=== PATIENT | male | born 1975 | race Caucasian/White ===

== ENCOUNTER 2020-04-09 08:26 | Emergency (ER) | payer BC ==
[2020-04-09] MEDS ORDERED: Lidocaine 1% with EPINEPHrine 1:100,000 10 ML MDV INJECT ONE (08:29)
[2020-04-09] MEDS ORDERED: Lactated Ringers 1,000 ML IV ONE ×2 (08:30→09:56)
[2020-04-09] MEDS ORDERED: Lidocaine 1% with EPINEPHrine 1:100,000 20 ML MDV ONE (08:34)
[2020-04-09] MEDS ORDERED: Lidocaine 1% with EPINEPHrine 1:100,000 20 ML MDV INJECT ONE (08:38)
--- NOTE | 2020-04-09 08:39 | EDM.PDOC ---
ED HPI GENERAL MEDICAL PROBLEM - General Chief Complaint: ENT Problem Stated Complaint: UNKNOWN Time Seen by Provider: 04/09/20 08:28 - History of Present Illness INITIAL COMMENTS - FREE TEXT/NARRATIVE: 44-year-old male who denies other medical problems issues with bleeding or prior surgeries who presents with post tonsillectomy bleeding. The patient had tonsillectomy and Maureen 7 days ago. He has had significant issues with pain since that time. at bedside reports that the tonsillar fossa were quite friable during the procedure to the point that his doctor even avoided injecting Marcaine after the procedure out of a desire not to cause additional bleeding issues. Patient has had significant issues with pain since that time however starting overnight he developed bleeding after coughing up a moderate sized bloo d clot. The patient reports severe pain. He has a sensation of difficulty breathing when he is calmly spitting out saliva mixed with dark red blood. throat Pain Score (Numeric/FACES): 5 - Related Data Allergies Allergy/AdvReac Type Severity Reaction Status Date / Time Penicillins Allergy Cannot Verified 04/09/20 08:33 Remember Home Meds: Home Meds Acetaminophen [Tylenol Extra Strength] 1 - 2 tab PO Q6H PRN 04/09/20 [History] Acetaminophen/Codeine [Tylenol with Codeine No.3 300MG/30MG] 15 ml PO Q6H PRN 04/09/20 [History] Azithromycin 1 tab PO DAILY 04/09/20 [History] Hydrocodone/Acetaminophen [Ransom 7.5-325 Tablet] 10 ml PO Q6H PRN 04/09/20 [History] ED ROS GENERAL - Review of Systems Review Of Systems: See Below Free Text/Narrative/Comment: General: No fever. Skin: No rash. Eyes: No vision problems. ENT: Per HPI Neck: No neck stiffness. Respiratory: Per HPI Cardiac: No chest pain. Gastrointestinal: No nausea, vomiting or abdominal pain. Urinary: No dysuria. Musculoskeletal: No myalgias/arthralgias. Neurologic: No headache. ED EXAM, GENERAL - Physical Exam Exam: See Below Free Text/Narrative:: General Appearance: No acute distress, appears comfortable Skin: No rash HEENT: Normocephalic/atraumatic, sclera anicteric, mucous membranes moist, bilateral tonsillar fossa appears significantly friable with signs of recent bleeding these are more pronounced on the right where there is some adherent clot. There is no stridor and no abnormal intraoral swelling Neck: Normal range of motion Chest and Lungs: Bilateral breath sounds, clear to auscultation, normal work of breathing Cardiovascular: Regular rate and rhythm, no murmur Neurologic: Awake, alert, no obvious deficits, moving all extremities Psychiatric: Appropriate, cooperative Course - Vital Signs Last Recorded V/S: Last Vital Signs Temp 96.6 F L 04/09/20 08:29 Pulse 116 H 04/09/20 10:05 Resp 18 04/09/20 10:05 BP 132/86 04/09/20 10:05 Pulse Ox 97 04/09/20 10:05 - Orders/Labs/Meds Labs: Laboratory Tests 04/09/20 04/09/20 Range/Units 08: 08:27 WBC 11.47 H (4.0-11.0) K/uL RBC 5.16 (4.50-5.90) M/uL Hgb 16.1 (13.0-17.0) g/dL Hct 47.3 (38.0-50.0) % MCV 91.7 (80.0-98.0) fL MCH 31.2 (27.0-32.0) pg MCHC 34.0 (31.0-37.0) g/dL RDW Std Deviation 40.7 (28.0-62.0) fl RDW Coeff of Connie 12 (11.0-15.0) % Plt Count 288 (150-400) K/uL MPV 10.50 (7.40-12.00) fL Neut % (Auto) 60.1 (48.0-80.0) % Lymph % (Auto) 24.6 (16.0-40.0) % Stanton % (Auto) 13.8 (0.0-15.0) % Eos % (Auto) 1.4 (0.0-7.0) % Baso % (Auto) 0.1 (0.0-1.5) % Neut # (Auto) 6.9 H (1.4-5.7) K/uL Lymph # (Auto) 2.8 H (0.6-2.4) K/uL Stanton # (Auto) 1.6 H (0.0-0.8) K/uL Eos # (Auto) 0.2 (0.0-0.7) K/uL Baso # (Auto) 0.0 (0.0-0.1) K/uL Nucleated RBC % 0.0 /100WBC Nucleated RBCs # 0 K/uL Sodium 138 (136-148) mmol/L Potassium 4.5 (3.5-5.1) mmol/L Chloride 101 (98-107) mmol/L Carbon Dioxide 29.1 (21.0-32.0) mmol/L BUN 9 (7.0-18.0) mg/dL Creatinine 0.9 (0.8-1.3) mg/dL Est Cr Clr Drug Dosing 88.83 mL/min Estimated GFR (MDRD) > 60.0 ml/min Glucose 124 H (74-106) mg/dL Calcium 9.9 (8.5-10.1) mg/dL Meds: Medications Discontinued Medications Generic Name Dose Route Start Last Admin Trade Name Freq PRN Reason Stop Dose Admin Lactated Ringer's 1,000 mls @ 999 mls/hr 04/09/20 08:30 04/09/20 08:39 Ringers, Lactated IV 04/09/20 09:30 999 mls/hr .BOLUS ONE Administration Lactated Ringer's 1,000 mls @ 999 mls/hr 04/09/20 09:56 04/09/20 09:59 Ringers, Lactated IV 04/09/20 10:56 999 mls/hr .BOLUS ONE Administration Lidocaine/Epinephrine 10 ml 04/09/20 08:29 04/09/20 08:40 Xylocaine 1% With Epinephrine 1:100,000 INJECT 04/09/20 08:30 Not Given ONETIME ONE Lidocaine/Epinephrine Confirm 04/09/20 08:34 04/09/20 08:39 Xylocaine 1% With Epinephrine 1:100,000 Administered 04/09/20 08:35 Not Given Dose 20 ml .ROUTE .STK-MED ONE Lidocaine/Epinephrine 10 ml 04/09/20 08:38 04/09/20 08:39 Xylocaine 1% With Epinephrine 1:100,000 INJECT 04/09/20 08:39 10 ml ONETIME ONE Administration Ondansetron HCl 4 mg 04/09/20 09:10 04/09/20 09:14 Zofran IVPUSH 04/09/20 09:11 4 mg ONETIME ONE Administration Oxymetazoline HCl 0 ml 04/09/20 10:15 04/09/20 10:19 Afrin Original 0.05% Nasal [place] ASHLI 04/09/20 10:16 1 dose ONETIME ONE Administration Departure - Departure Time of Disposition: 10:00 Disposition: DC/Tfer to Acute Hospital 02 Condition: Good Clinical Impression: Post-tonsillectomy hemorrhage - Discharge Information *PRESCRIPTION DRUG MONITORING PROGRAM REVIEWED*: Not Applicable *COPY OF PRESCRIPTION DRUG MONITORING REPORT IN PATIENT TIGIST: Not Applicable Referrals: PCP,None [Primary Care Provider] - Forms: ED Department Discharge Sepsis Event Note (ED) - Evaluation Sepsis Screening Result: No Definite Risk - Focused Exam Vital Signs: Vital Signs Temp Pulse Resp BP Pulse Ox 04/09/20 10:05 116 H 18 132/86 97 04/09/20 08:29 96.6 F L 116 H 18 98 - Assessment/Plan Assessment:: 44-year-old male presenting with post tonsillectomy bleeding. Patient reports poor p.o. intake over the last few days due to pain. They have already tried gargling with Afrin. Patient is protecting his airway I have no airway concerns on exam. He is not actively hemorrhaging is more of a slow ooze. We will start with nebulized lidocaine with epi and will encourage gargling repeatedly with ice cold water in hopes that this will help control the bleeding. CBC and BMP ordered 1 L of LR as well. If we are not able to control the bleeding here we may need to transfer the patient to his skin lifter bacon in [place]. 0933: Patient's labs are good. His bleeding I believe is improving but is still persistent. I discussed the case with his covering skin lifter bacon. Otolaryngology and myself are in agreement that given the multiple bleeding sites and the overall nature of the wound bed is unlikely that additional interventions from me beyond gargling with ice water are likely to make a substantial difference in the patient's progress. We will continue this route for another 30 minutes and reassess. However, otolaryngology is available to take the patient to the operating room in [place] if needed. That said we will need to make sure he is stable for discharge to drive POV prior to this. 0945: Patient con't to have some bleeding HR 115 and additional LR ordered. I do think it likely that the patient will need transfer. Will con't to monitor and discuss again with ENT at 10am as planned. Pt remains awake and alert, h andling secretions well and protecting his airway. 1000: Pt has con't bleeding. Pt remains awake and alert, sitting up and protecting his airway. Pt discussed again with Dr. Salter (ENT). He accepts the patient for transfer to [facility] for planned operative intervention. Pt also discussed with ER provider Dr. Ortiz who likewise agrees with transfer. We are awaiting call back from EMS regarding ground transport. If this will not be available for some time then we will fly the patient given the ongoing active bleeding. 1024: Ground transport appears to be the fastest right now. HR briefly felix to the 120s. However, it is now 111 with approx 200mls of the 2nd LR infused. Pt's bleeding appears to be slowing again s/p Afrin. However, will con't with transport as pt con't to have bleeding and it will likely persist. We await the arrival of another ambulance and then this patient will be able to transport out. Given eminent departure would not repeat H/H here. 1100: There was an additional delay due to ambulance availability. However, pt is now leaving for [facility]. He remains awake and alert, HR unchanged, con't to have some ongoing bleeding but on exam still diffuse oozing without focal hemorrhage. He is felt stable for transfer.
[2020-04-09 08:57] LABS: BLOOD UREA NITROGEN,BUN 9 mg/dL (7.0-18.0); CARBON DIOXIDE,CO2 29.1 mmol/L (21.0-32.0); CHLORIDE,CL 101 mmol/L (98-107); GLUCOSE RANDOM 124 mg/dL (74-106); POTASSIUM,K 4.5 mmol/L (3.5-5.1); SODIUM,NA 138 mmol/L (136-148)
[2020-04-09] MEDS ORDERED: Ondansetron 4 MG/2 ML SDV IVPUSH ONE (09:10)
[2020-04-09] MEDS ORDERED: Oxymetazoline 0.05% Nasal Spray 30 ML Bottle NAS ONE (10:11)
[2020-04-09] MEDS ORDERED: Oxymetazoline 0.05% Nasal Spray 15 ML Bottle NAS ONE (10:15)
== END 2020-04-09 10:58 ==
LOC: MW.ED 08:26
DX: J95.830 Postprocedural hemorrhage of a respiratory system organ or structure following a respiratory system procedure (principal); Z88.0 Allergy status to penicillin
CPT/HCPCS: 36415; 80048; 85025; 96361; 96374; 99284; A9270; J2405; J7120